=== PATIENT | male | born 1965 | race African-American/Black ===

== ENCOUNTER 2016-11-20 06:12 | Day surgery (SDC) | payer MEDICARE, MEDICAID ==
[~2016-11-20] VITALS: Ht 177.8 cm; Wt 81.2 kg
[2016-11-20] MEDS ORDERED: MUPI22OI2 TP (07:29)
[2016-11-20] MEDS ORDERED: MEMA10TA2 PO (07:29)
[2016-11-20] MEDS ORDERED: TRAZ-129 PO (07:29)
[2016-11-20] MEDS ORDERED: GABA-533 PO (07:29)
[2016-11-20] MEDS ORDERED: CLOP75TA16 PO (07:29)
[2016-11-20] MEDS ORDERED: KETO15CR2 TP (07:29)
[2016-11-20] MEDS ORDERED: HYDR12.529 PO (07:29)
[2016-11-20] MEDS ORDERED: LIP40 PO (07:29)
[2016-11-20] MEDS ORDERED: ASPI-1159 PO (07:29)
[2016-11-20] MEDS ORDERED: BETDL TP (07:29)
[2016-11-20] MEDS ORDERED: HYDR10SY11 PO (07:29)
[2016-11-20 07:45] LABS: CARBON DIOXIDE 31 mEq/L (21-32); CHLORIDE 103 mEq/L (98-107)
[2016-11-20] MEDS ORDERED: IODIXANOL 320MG/ML 100 ML BOTTLE IV ONE (08:26)
[2016-11-20] MEDS ORDERED: LIDOCAINE HCL 1% 20ML VIAL (Pyxis) INJ ONE (08:27)
[2016-11-20] MEDS ORDERED: MIDAZOLAM HCL 2 MG/2 ML VIAL ONE ×2 (08:28→08:56)
[2016-11-20] MEDS ORDERED: FENTANYL CITRATE/PF 50MCG/ML 2ML VIAL ONE (08:29)
[2016-11-20] MEDS ORDERED: IOVERSOL 240MG/ML 100ML BOTTLE IV ONE (08:33)
[2016-11-20] MEDS ORDERED: HEPARIN SODIUM 1,000 UNIT/1ML VIAL IV ONE ×2 (08:35→09:18)
[2016-11-20] MEDS ORDERED: PROTAMINE SULFATE 10MG/ML VIAL 5ML IV ONE (09:43)
== END 2016-11-20 15:45 | disposition home or self-care (01) ==
LOC: CCL 06:12
PROVIDERS: ATTEND Specialist
DX: I70.212 Atherosclerosis of native arteries of extremities with intermittent claudication, left leg (principal); I70.92 Chronic total occlusion of artery of the extremities; E78.5 Hyperlipidemia, unspecified; I10 Essential (primary) hypertension; F17.200 Nicotine dependence, unspecified, uncomplicated; E66.09 Other obesity due to excess calories
CPT/HCPCS: 36246; 36415; 75710; 80048; 85347; 99152; 99153; C1760; C1769; C1887; C1893; C1894; J1644; J2250; J2720; J3010; J3490; Q9967